=== PATIENT | female | born 1945 | race Caucasian/White ===

== ENCOUNTER 2017-11-11 15:28 | Inpatient (IN) | payer MEDICARE, MEDICAID ==
[~2017-11-11] VITALS: Ht 157.5 cm; Wt 82.6 kg
--- NOTE | 2017-11-11 15:35 | NUR ---
BB PRIVATE EMS FROM [facility]: MED CLEARANCE FOR GPS ADMIT, INCREASED AGITATION. NAD NOTED, VSS, RESP EVEN AND UNLABORED, PT WAS PUT ON MONITOR AND WAITING FOR MD DALTON.
[2017-11-11] MEDS ORDERED: MULT-447 PO (15:53)
[2017-11-11] MEDS ORDERED: MAGN400O6 PO (15:53)
[2017-11-11] MEDS ORDERED: QUET25TA PO (15:53)
[2017-11-11] MEDS ORDERED: DONE5TAB34 PO (15:53)
[2017-11-11] MEDS ORDERED: ASPI-992 PO (15:53)
[2017-11-11] MEDS ORDERED: LORA0.5T PO (15:53)
[2017-11-11] MEDS ORDERED: LISI2.5T2 PO (15:53)
[2017-11-11] MEDS ORDERED: NITR0.4T48 SL (15:53)
[2017-11-11] MEDS ORDERED: CARV6.252 PO (15:53)
[2017-11-11] MEDS ORDERED: ACET-868 PO (15:53)
[2017-11-11] MEDS ORDERED: DIVA125C2 PO (15:53)
[2017-11-11] MEDS ORDERED: CHOL100044 PO (15:53)
[2017-11-11] MEDS ORDERED: SENN-18 PO (15:53)
[2017-11-11 15:59] LABS: BASOPHILS % (AUTO) 0.5 % (0.0-2.0); EOSINOPHILS % (AUTO) 3.1 % (0.0-6.0); HEMATOCRIT 39 % (33-45); HEMOGLOBIN 13.1 g/dL (11.5-14.8); LYMPHOCYTES # (AUTO) 1.5 /CMM (0.8-4.8); LYMPHOCYTES % (AUTO) 19.9 % (20.0-44.0); MEAN CORPUSCULAR HGB CONC 33 g/dl (31.0-36.0); MEAN CORPUSCULAR VOLUME 89 fL (82-100); MONOCYTES # (AUTO) 0.7 /CMM (0.1-1.30); MONOCYTES % (AUTO) 9.1 % (2.0-12.0); NEUTROPHILS # (AUTO) 5.1 /CMM (1.8-8.9); NEUTROPHILS % (AUTO) 67.4 % (43.0-81.0); PLATELET COUNT (AUTO) 339 /CMM (150-450); RDW COEFFICIENT OF VARIATION 13.6 (11.5-15.0); RED BLOOD CELL COUNT(AUTO) 4.41 MIL/uL (4.0-5.2); WHITE BLOOD COUNT (AUTO) 7.5 K/uL (4.3-11.0)
[2017-11-11] MEDS ORDERED: HALOPERIDOL LACTATE INJ 5 MG/ML VIAL IM ONE (16:00)
[2017-11-11 16:13] LABS: CARBON DIOXIDE 29 mmol/L (21-32); CHLORIDE 100 mmol/L (98-107); CREATININE 0.8 mg/dL (0.6-1.3); GLUCOSE 124 mg/dL (74-106); POTASSIUM 4.1 mmol/L (3.5-5.1); SODIUM SERUM 137 mmol/L (136-145); UREA NITROGEN, BLOOD 16 mg/dL (7-18)
[2017-11-11] MEDS ORDERED: HALOPERIDOL LACTATE INJ 5 MG/ML VIAL ONE (16:14)
--- NOTE | 2017-11-11 16:15 | NUR ---
SITTER AT BS
[2017-11-11 16:27] LABS: ALANINE AMINOTRANSFERASE 27 U/L (12-78); ALBUMIN 3.5 g/dL (3.4-5.0); ALKALINE PHOSPHATASE 108 U/L (46-116); ASPARTATE AMINOTRANSFERASE 20 U/L (15-37); BILIRUBIN,DIRECT 0.1 mg/dL (0.0-0.2); BILIRUBIN,TOTAL 0.3 mg/dL (0.2-1.0); TOTAL PROTEIN, SERUM 8.7 g/dL (6.4-8.2)
[2017-11-11 16:29] LABS: ACETAMINOPHEN < 2 ug/ml (10-30); ALCOHOL, BLOOD < 3 mg/dL (0-0); SALICYLATE 1.3 mg/dL (2.8-20.0)
--- NOTE | 2017-11-11 17:15 | NUR ---
UNABLE TO GET URINE FROM THE PT, MADE AWARE.
--- NOTE | 2017-11-11 18:35 | NUR ---
GPS/RN PATIENT CAME FROM ER, ADMITTED ON A 5150 HOLD FOR DTS AND GD UNDER THE CARE OF DR BARBER AND DR DENIS. DR BARBER MADE AWARE OF NEW ADMISSION, ORDERS INPUTTED IN SYSTEM, VITALS: 172/78, 76, 19, 100, REFUSED TEMPERATURE. NO CONTRABAND, BELONGINGS IN LOCKER. PER HOLD, SHE WAS AGITATED AND UNMANAGEABLE AT [facility]. UPON FACE TO FACE ASSESSMENT, PATIENT IS ALERT X 1, GHANAIAN SPEAKING, DISORGANIZED, ANXIOUS AGITATED AND UNCOOPERATIVE. PATIENT IS IN ROOM, FALL PRECAUTIONS IMPLEMENTED, NO MAJOR DISTRESS NOTED, ALL NEEDS ATTENDED, WILL CONTINUE TO MONITOR Q 15 MIN FOR SAFETY AND BEHAVIOR. WILL ENDORSE COMPLETION OF ADMISSION TO ONCOMING SHIFT.
[2017-11-11] MEDS ORDERED: MAGNESIUM HYDROXIDE 30 ML UDC PO PRN (19:00)
[2017-11-11] MEDS ORDERED: MAG HYDROX/AL HYDROX/SIMETH 30 ML UDC PO PRN (19:00)
[2017-11-11] MEDS ORDERED: ACETAMINOPHEN 325 MG TABLET PO PRN ×2 (19:00→21:00)
[2017-11-11] MEDS ORDERED: LORAZEPAM 0.5 MG TABLET PO PRN (19:00)
[2017-11-11 20:00] VITALS: BP 168/68
[2017-11-11] MEDS: SENNOSIDES 8.6 MG TABLET PO SCH (21:19)
[2017-11-11] MEDS: CARVEDILOL 6.25 MG TABLET PO SCH (21:19)
[2017-11-12 06:45] VITALS: BP 147/77
--- NOTE | 2017-11-12 06:46 | NUR ---
LATEST BP NOW 144/77, HR 81. STABLE CONDITION
[2017-11-12 07:41] VITALS: BP 147/66
[2017-11-12] MEDS: CHOLECALCIFEROL 1,000 UNIT TABLET (VIT D3) PO SCH ×2 (08:30→17:30)
[2017-11-12] MEDS: DONEPEZIL 5 MG TABLET PO SCH (08:30)
[2017-11-12] MEDS: DIVALPROEX SODIUM 125 MG CAP.SPRINK PO SCH (08:30)
[2017-11-12] MEDS: MULTIVITAMINS,THERAGRAN 1 UDTAB TABLET PO SCH (08:30)
[2017-11-12] MEDS: ASPIRIN 325 MG TABLET PO SCH (08:30)
[2017-11-12] MEDS: CARVEDILOL 6.25 MG TABLET PO SCH ×2 (08:31→16:58)
[2017-11-12] MEDS: LISINOPRIL (5MG) 5 MG TABLET PO SCH (08:31)
--- NOTE | 2017-11-12 12:07 | NUR ---
SW completed PATIENT INFORMATION AND CHOICE LETTER. Pt is a returning pt from [facility] and stated no preference of providers. Pt refused to sign due to paranoia and distress.
--- NOTE | 2017-11-12 12:35 | NUR ---
SW spoke to pts son Raji [phone] for collateral information.
--- NOTE | 2017-11-12 13:41 | NUR ---
INITIAL DISCHARGE NOTE: Pt will return to [facility] Address: [address] [facility], [place] [address] within 7 day Medicare bed hold. SW will help form a safe and proper discharge in collaboration with .
[2017-11-12 15:48] VITALS: BP 130/69
[2017-11-12] MEDS: DIVALPROEX SODIUM 250 MG TABLET.DR PO SCH (18:03)
[2017-11-12 20:00] VITALS: BP 108/78
[2017-11-12] MEDS: QUETIAPINE FUMARATE 25 MG TABLET PO SCH (21:29)
[2017-11-12] MEDS: SENNOSIDES 8.6 MG TABLET PO SCH (21:30)
[2017-11-12] MEDS: TEMAZEPAM 7.5 MG CAPSULE PO PRN (21:30)
--- NOTE | 2017-11-12 21:30 | NUR ---
TEMAZEPAM 7.5 MG CAP 1 PO GIVEN FOR SLEEP.
[2017-11-13 08:00] VITALS: BP 102/58
[2017-11-13] MEDS: CARVEDILOL 6.25 MG TABLET PO SCH ×2 (09:00→17:01)
[2017-11-13] MEDS: LISINOPRIL (5MG) 5 MG TABLET PO SCH (09:00)
[2017-11-13] MEDS: DONEPEZIL 5 MG TABLET PO SCH (09:29)
[2017-11-13] MEDS: DIVALPROEX SODIUM 125 MG CAP.SPRINK PO SCH (09:29)
[2017-11-13] MEDS: DIVALPROEX SODIUM 250 MG TABLET.DR PO SCH ×2 (09:29→16:57)
[2017-11-13] MEDS: QUETIAPINE FUMARATE 25 MG TABLET PO SCH ×2 (09:29→21:28)
[2017-11-13] MEDS: MULTIVITAMINS,THERAGRAN 1 UDTAB TABLET PO SCH (09:30)
[2017-11-13] MEDS: ASPIRIN 325 MG TABLET PO SCH (09:30)
[2017-11-13] MEDS: CHOLECALCIFEROL 1,000 UNIT TABLET (VIT D3) PO SCH ×2 (09:31→16:58)
[2017-11-13 15:19] LABS: CARBON DIOXIDE 27 mmol/L (21-32); CHLORIDE 101 mmol/L (98-107); GLUCOSE 102 mg/dL (74-106); POTASSIUM 3.9 mmol/L (3.5-5.1); SODIUM SERUM 138 mmol/L (136-145); UREA NITROGEN, BLOOD 21 mg/dL (7-18)
[2017-11-13 15:40] LABS: BASOPHILS % (AUTO) 0.3 % (0.0-2.0); EOSINOPHILS % (AUTO) 3.6 % (0.0-6.0); HEMATOCRIT 37 % (33-45); HEMOGLOBIN 12.5 g/dL (11.5-14.8); LYMPHOCYTES # (AUTO) 1.9 /CMM (0.8-4.8); LYMPHOCYTES % (AUTO) 23.8 % (20.0-44.0); MEAN CORPUSCULAR HGB CONC 33 g/dl (31.0-36.0); MEAN CORPUSCULAR VOLUME 89 fL (82-100); MONOCYTES # (AUTO) 0.7 /CMM (0.1-1.30); MONOCYTES % (AUTO) 9.1 % (2.0-12.0); NEUTROPHILS % (AUTO) 63.2 % (43.0-81.0); PLATELET COUNT (AUTO) 313 /CMM (150-450); RDW COEFFICIENT OF VARIATION 14.5 (11.5-15.0); WHITE BLOOD COUNT (AUTO) 7.9 K/uL (4.3-11.0)
[2017-11-13 16:19] VITALS: BP 106/59
[2017-11-13 20:00] VITALS: BP 114/87
[2017-11-13] MEDS: TEMAZEPAM 7.5 MG CAPSULE PO PRN (21:28)
[2017-11-13] MEDS: SENNOSIDES 8.6 MG TABLET PO SCH (21:28)
[2017-11-14 06:44] LABS: APPEARANCE,URINE CLOUDY (CLEAR); BILIRUBIN,URINE NEGATIVE (NEGATIVE); BLOOD, URINE NEGATIVE Ery/uL (NEGATIVE); COLOR,URINE YELLOW (YELLOW); KETONES,URINE 1+ (NEGATIVE); LEUKOCYTE ESTERASE ,URINE NEGATIVE (NEGATIVE); NITRITE, URINE NEGATIVE (NEGATIVE); PH,URINE 5.5 (5.0-8.0); PROTEIN,URINE TRACE mg/dl (NEGATIVE); UGLUCOSE NEGATIVE (NEGATIVE)
[2017-11-14 07:01] LABS: BACTERIA,URINE Few /HPF (None Seen); SQUAMOUS EPITHELIAL CELL,UR Moderate /HPF (None Seen); URINE AMORPHOUS URATE Moderate /HPF (None Seen)
[2017-11-14 08:00] VITALS: BP 125/64
[2017-11-14] MEDS: DIVALPROEX SODIUM 250 MG TABLET.DR PO SCH ×2 (08:29→16:40)
[2017-11-14] MEDS: CARVEDILOL 6.25 MG TABLET PO SCH ×2 (08:29→16:39)
[2017-11-14] MEDS: LISINOPRIL (5MG) 5 MG TABLET PO SCH (08:29)
[2017-11-14] MEDS: QUETIAPINE FUMARATE 25 MG TABLET PO SCH ×2 (08:30→20:33)
[2017-11-14] MEDS: DIVALPROEX SODIUM 125 MG CAP.SPRINK PO SCH (08:30)
[2017-11-14] MEDS: DONEPEZIL 5 MG TABLET PO SCH (08:30)
[2017-11-14] MEDS: ASPIRIN 325 MG TABLET PO SCH (08:30)
[2017-11-14] MEDS: MULTIVITAMINS,THERAGRAN 1 UDTAB TABLET PO SCH (08:30)
[2017-11-14] MEDS: CHOLECALCIFEROL 1,000 UNIT TABLET (VIT D3) PO SCH ×2 (08:32→16:40)
[2017-11-14 16:22] VITALS: BP 111/54
[2017-11-14 20:05] VITALS: BP 125/58
[2017-11-14] MEDS: TEMAZEPAM 7.5 MG CAPSULE PO PRN (20:33)
--- NOTE | 2017-11-14 20:34 | NUR ---
TEMAZEPAM 7.5 MG CAP 1 PO GIVEN. FOR SLEEP.
[2017-11-14] MEDS: SENNOSIDES 8.6 MG TABLET PO SCH (21:05)
[2017-11-15 08:00] VITALS: BP 134/65
[2017-11-15] MEDS: CARVEDILOL 6.25 MG TABLET PO SCH ×2 (09:00→16:20)
[2017-11-15] MEDS: DONEPEZIL 5 MG TABLET PO SCH (09:00)
[2017-11-15] MEDS: ASPIRIN 325 MG TABLET PO SCH (09:00)
[2017-11-15] MEDS: LISINOPRIL (5MG) 5 MG TABLET PO SCH (09:00)
[2017-11-15] MEDS: CHOLECALCIFEROL 1,000 UNIT TABLET (VIT D3) PO SCH ×2 (09:00→16:19)
[2017-11-15] MEDS: MULTIVITAMINS,THERAGRAN 1 UDTAB TABLET PO SCH (09:00)
[2017-11-15] MEDS: DIVALPROEX SODIUM 125 MG CAP.SPRINK PO SCH (09:00)
[2017-11-15] MEDS: DIVALPROEX SODIUM 250 MG TABLET.DR PO SCH ×2 (09:00→16:21)
[2017-11-15] MEDS: QUETIAPINE FUMARATE 25 MG TABLET PO SCH ×3 (09:00→21:16)
[2017-11-15 16:00] VITALS: BP 112/66
[2017-11-15 19:35] VITALS: BP 150/73
[2017-11-15] MEDS: SENNOSIDES 8.6 MG TABLET PO SCH (21:24)
--- NOTE | 2017-11-15 21:24 | NUR ---
GPS RN NOTES: PATIENT REFUSED SCHEDULED [place] TAB. OFFERED X3. EXPLAINED RISKS AND BENEFITS. PATIENT STILL REFUSED.
[2017-11-15] MEDS: TEMAZEPAM 7.5 MG CAPSULE PO PRN (22:15)
[2017-11-16 08:00] VITALS: BP 148/110
[2017-11-16] MEDS: DIVALPROEX SODIUM 125 MG CAP.SPRINK PO SCH (08:48)
[2017-11-16] MEDS: ASPIRIN 325 MG TABLET PO SCH (08:48)
[2017-11-16] MEDS: DONEPEZIL 5 MG TABLET PO SCH (08:49)
[2017-11-16] MEDS: QUETIAPINE FUMARATE 25 MG TABLET PO SCH ×2 (08:49→21:06)
[2017-11-16] MEDS: DIVALPROEX SODIUM 250 MG TABLET.DR PO SCH ×2 (08:49→16:36)
[2017-11-16] MEDS: CHOLECALCIFEROL 1,000 UNIT TABLET (VIT D3) PO SCH ×2 (08:49→16:37)
[2017-11-16] MEDS: MULTIVITAMINS,THERAGRAN 1 UDTAB TABLET PO SCH (08:49)
[2017-11-16] MEDS: LISINOPRIL (5MG) 5 MG TABLET PO SCH (08:49)
[2017-11-16] MEDS: CARVEDILOL 6.25 MG TABLET PO SCH ×2 (08:50→16:37)
[2017-11-16 10:00] VITALS: BP 144/76
[2017-11-16 16:00] VITALS: BP 109/64
--- NOTE | 2017-11-16 19:30 | NUR ---
RN NOTE; RECEIVED PT IN BED SLEEPING W/ THE SITTER AT THE BED SIDE. CONFUSED. BREATHING EVENLY. NAD. REMAINED CALM AND QUIET AT THIS TIME . WILL CONT TO MONITOR .
[2017-11-16 20:00] VITALS: BP 136/90
[2017-11-16] MEDS: SENNOSIDES 8.6 MG TABLET PO SCH (21:06)
--- NOTE | 2017-11-17 06:38 | NUR ---
pt resting in bed comfortably. no acute event during the night, w/ episodes of anxiety otherwise compliant w/ meds and POC. needs attended. cleaned and dried. under close monitoring for safety. will cont to monitor and will endorse to am shift for jenniffer .
[2017-11-17 08:00] VITALS: BP 143/73
[2017-11-17] MEDS ORDERED: DIVALPROEX SODIUM 125 MG CAP.SPRINK PO SCH ×2 (09:00→10:00)
[2017-11-17] MEDS: ASPIRIN 325 MG TABLET PO SCH (09:58)
[2017-11-17] MEDS: QUETIAPINE FUMARATE 25 MG TABLET PO SCH (09:58)
[2017-11-17] MEDS: DONEPEZIL 5 MG TABLET PO SCH (09:58)
[2017-11-17] MEDS: CARVEDILOL 6.25 MG TABLET PO SCH (09:58)
[2017-11-17] MEDS: CHOLECALCIFEROL 1,000 UNIT TABLET (VIT D3) PO SCH (09:59)
[2017-11-17] MEDS: MULTIVITAMINS,THERAGRAN 1 UDTAB TABLET PO SCH (09:59)
[2017-11-17 10:00] VITALS: BP 114/73
[2017-11-17] MEDS: LISINOPRIL (5MG) 5 MG TABLET PO SCH (10:00)
--- NOTE | 2017-11-17 11:48 | NUR ---
DISCHARGE PLAN: Pt being discharged at 1:30pm to [facility] ([facility]) [address] [place] [address] P: [phone] via [facility] ambulance trip #[id number]. Pts mood and affect was confused and agitated, Pts denied suicidal/homicidal ideations and denied visual/auditory hallucinations. Pts son Raji has been notified [phone] and agrees to discharge plan. Pt will remail under the medical care of Weight Calculator: Dr. Dwight Merida [id number], [place] [address] and Psychiatrist: Dr. Farhat [address] [facility] [address], [place] [address] [phone]. The multidisciplinary exitcare form was done, printed, signed, and given to the patient.
--- NOTE | 2017-11-17 14:10 | NUR ---
GPS/RN-NOTES PATIENT DISCHARGE TO [facility] SN[facility] TODAY. DR. BARBER AND DR. GALLEGOS MADE AWARE AND AGREES OF PATIENT DISCHARGE WITH ORDERS.PATIENT DID NOT VERBALIZE SI/HI,DENIES VISUAL AUDITORY HALLUCINATIONS AT THE TIME OF DISCHARGE.REPORT WAS GIVEN TO TOM ( FACILITY DESK NURSE).PER NOTES PT'S. OPAL GALEANA ) AWARE OF THE PATIENT DISCHARGE.PATIENT LEFT THE UNIT IN STABLE CONDITION WITH ALL HER BELONGINGS.PATIENT WAS [employer] BY AMBULANCE VIA GURNEY WITH TWO STAFF ASSIST.
== END 2017-11-17 14:05 | DRG 885 ==
LOC: ER 15:30 → GPS 17:28
PROVIDERS: ADMIT Psychiatry & Neurology Psychiatry; ATTEND Registered Nurse
DX: F29 Unspecified psychosis not due to a substance or known physiological condition (principal); F02.81 Dementia in other diseases classified elsewhere, unspecified severity, with behavioral disturbance; N17.0 Acute kidney failure with tubular necrosis; G93.40 Encephalopathy, unspecified; G30.9 Alzheimer's disease, unspecified; E66.01 Morbid (severe) obesity due to excess calories; F32.9 Major depressive disorder, single episode, unspecified; F41.9 Anxiety disorder, unspecified; I10 Essential (primary) hypertension; Z73.6 Limitation of activities due to disability; Z68.33 Body mass index [BMI] 33.0-33.9, adult
CPT/HCPCS: 36415; 70450-TC; 71045-TC; 80048-TC; 80076-TC; 81000-TC; 82140-TC; 85025-TC; 87081-TC; 87086-TC; A4606; G0480; J1630; Z7610